=== PATIENT | female | born 1995 | race African-American/Black ===

== ENCOUNTER 2016-09-23 20:24 | Emergency (ER) | payer OTHER ==
[2016-09-23 21:32] LABS: Blood, Urine Negative (Negative); Glucose, Urine (Dipstick) Negative (Negative); Leukocyte Trace (Negative); Nitrite Negative (Negative); Protein, Urine (Dipstick) Negative (Neg-Trace); Specific Gravity, Urine 1.025 (1.005-1.030)
[2016-09-23 21:33] LABS: Bilirubin Negative (Negative); Clarity Hazy (Clear); Icto Negative (Negative)
[2016-09-23 21:34] LABS: Pregnancy Test - Urine (BHCG) NEGATIVE (NEGATIVE); Pregu Control Bar Appear? YES (CONTROL BAR); Specific Gravity 1.025 (1.002-1.036)
[2016-09-23 21:42] LABS: Bacteria/HPF 2+ HPF (None Seen); RBC/HPF None Seen HPF (0-3); WBC/HPF 0-3 HPF (0-3)
[2016-09-23] MEDS ORDERED: Lidocaine 1% 20 ML MDV ONE (21:45)
[2016-09-23] MEDS ORDERED: cefTRIAXone\\ROCEPHIN 250 MG VIAL ONE (21:45)
[2016-09-23] MEDS ORDERED: Azithromycin 250 MG TAB ONE (21:45)
[2016-09-25 18:14] LABS: Chlamydia by PCR Not Detected (NotDetected); GC by PCR Not Detected (NotDetected)
== END 2016-09-23 22:25 | disposition home or self-care (01) ==
LOC: MADERS 20:24
DX: N72 Inflammatory disease of cervix uteri (principal); I10 Essential (primary) hypertension; E66.9 Obesity, unspecified
CPT/HCPCS: 81003; 81015; 81025; 87491; 87591; 96372; J0696; J2001